=== PATIENT | female | born 1960 | race Caucasian/White ===

== ENCOUNTER 2017-06-03 05:39 | Emergency (ER) | payer BC, OTHER ==
[2017-06-03] MEDS ORDERED: CLINDAMYCIN HCL 150 MG CAPSULE PO ONE (06:31)
--- NOTE | 2017-06-03 06:37 | ER Document Report ---
ED General - General Chief Complaint: Nose Pain Stated Complaint: NOSE PAIN Time Seen by Provider: 06/03/17 06:22 Mode of Arrival: Ambulatory Information source: Patient Notes: HPI-57 years old female presents today with pain and swelling over the right nostril, she had similar infection in the past, this plan was going on for the last 3-4 days. Now the upper lip as slight swelling. No fever chills. No discharges. No other constitutional symptoms. She has multiple allergies REVIEW OF SYSTEMS: CONSTITUTIONAL : Denies fever, chills, or sweats. Denies recent illness. EENT: Denies eye, ear, throat, or mouth pain or symptoms. Denies nasal or sinus congestion or discharge. Denies throat, tongue, or mouth swelling or difficulty swallowing. CARDIOVASCULAR: Denies chest pain. Denies palpitations or racing or irregular heart beat. Denies ankle edema. RESPIRATORY: Denies cough, cold, or chest congestion. Denies shortness of breath, difficulty breathing, or wheezing. GASTROINTESTINAL: Denies abdominal pain or distention. Denies nausea, vomiting , or diarrhea. Denies blood in vomitus, stools, or per rectum. Denies black, tarry stools. Denies constipation. GENITOURINARY: Denies difficulty urinating, painful urination, burning, frequency, blood in urine, or discharge. FEMALE GENITOURINARY: Denies vaginal bleeding, heavy or abnormal periods, irregular periods. Denies vaginal discharge or odor. MUSCULOSKELETAL: Denies back or neck pain or stiffness. Denies joint pain or swelling. SKIN: Denies rash, lesions or sores. HEMATOLOGIC : Denies easy bruising or bleeding. LYMPHATIC: Denies swollen, enlarged glands. NEUROLOGICAL: Denies confusion or altered mental status. Denies passing out or loss of consciousness. Denies dizziness or lightheadedness. Denies headache. Denies weakness or paralysis or loss of use of either side. Denies problems with gait or speech. Denies sensory loss, numbness, or tingling. Denies seizures. PSYCHIATRIC: Denies anxiety or stress. Denies depression, suicidal ideation, or homicidal ideation. ALL OTHER SYSTEMS REVIEWED AND NEGATIVE. PHYSICAL EXAMINATION: GENERAL: Well-appearing, well-nourished and in no acute distress. HEAD: Atraumatic, normocephalic. EYES: Pupils equal round and reactive to light, extraocular movements intact, conjunctiva are normal. ENT: On the orifice days lesion which is about 3 mm x 4 mm with irregular surface. right nostril- Infected with erythema is warm and tender to touch. The erythema extending to the right half of the upper lip. With swelling of the lips to - oropharynx clear without exudates. Moist mucous membranes. NECK: Normal range of motion, supple without lymphadenopathy LUNGS: Breath sounds clear to auscultation bilaterally and equal. No wheezes rales or rhonchi. HEART: Regular rate and rhythm without murmurs ABDOMEN: Soft, nontender, nondistended abdomen. No guarding, no rebound. No masses appreciated. Female : deferred Musculoskeletal: Normal range of motion, no pitting or edema. No cyanosis. NEUROLOGICAL: Cranial nerves grossly intact. Normal speech, normal gait. Normal sensory, motor exams PSYCH: Normal mood, normal affect. SKIN: Warm, Dry, normal turgor, no rashes or lesions noted. Dictation was performed using [employer] voice recognition software TRAVEL OUTSIDE OF THE [place] IN LAST 30 DAYS: No - HPI Onset: Last week Onset/Duration: Gradual Quality of pain: Sharp Pain Level: 3 Associated symptoms: Allergy/hay fever - Related Data Allergies/Adverse Reactions: Penicillins Allergy (Severe, Verified 07/17/13 23:31) throat closes nitrofurantoin [Nitrofurantoin] Allergy (Intermediate, Verified 07/17/13 23:31) Hives Sulfa (Sulfonamide Antibiotics) Allergy (Intermediate, Verified 07/17/13 23:31) Hives doxycycline [Doxycycline] Allergy (Verified 07/17/13 19:49) levofloxacin [From Levaquin] Allergy (Verified 07/18/13 01:59) Past Medical History - General Information source: Patient - Social History Smoking Status: Never Smoker Cigarette use (# per day): No Chew tobacco use (# tins/day): No Smoking Education Provided: No Frequency of alcohol use: Rare Drug Abuse: None Family History: Reviewed & Not Pertinent - Past Medical History Cardiac Medical History: Reports: Hx Hypertension Pulmonary Medical History: Denies: Hx Tuberculosis Endocrine Medical History: Reports: Hx Diabetes Mellitus Type 2 Psychiatric Medical History: Denies: Hx Depression Past Surgical History: Reports: Hx Section, Hx Cholecystectomy, Hx Hysterectomy Review of Systems - Review of Systems Notes: As per history of complain Physical Exam - Vital signs Vitals: Temp Pulse Resp BP Pulse Ox 98.5 F 94 16 121/81 98 06/03/17 05:44 06/03/17 05:44 06/03/17 05:44 06/03/17 05:44 06/03/17 05:44 Course - Re-evaluation Re-evalutation: 06/03/17 06:35 Patient was explained this lesion need to be evaluated by a adoption coordinator. Possibly need biopsy. - Vital Signs Vital signs: Temp Pulse Resp BP Pulse Ox 98.5 F 94 16 121/81 98 06/03/17 05:44 06/03/17 05:44 06/03/17 05:44 06/03/17 05:44 06/03/17 05:44 Discharge - Discharge Clinical Impression: Cellulitis of nose, Lesion of nostril Condition: Fair Disposition: HOME, SELF-CARE Instructions: MRSA Cellulitis ([facility]) Additional Instructions: Please follow-up with your primary care physician or adoption coordinator for possible biopsy. Prescriptions: Clindamycin HCl 300 mg PO TID #30 capsule Referrals: SISSY JENSEN NP [Primary Care Provider] - Follow up as needed
[2017-06-03 06:50] VITALS: BP 136/78
== END 2017-06-03 06:54 | disposition home or self-care (01) ==
LOC: ER 05:39
DX: J34.0 Abscess, furuncle and carbuncle of nose (principal); L98.9 Disorder of the skin and subcutaneous tissue, unspecified; R22.0 Localized swelling, mass and lump, head; I10 Essential (primary) hypertension; E11.9 Type 2 diabetes mellitus without complications
CPT/HCPCS: 87070; 99283

== ENCOUNTER 2019-03-30 04:04 | Emergency (ER) | payer OTHER ==
[2019-03-30] MEDS ORDERED: NORMAL SALINE 1000 ML 1,000 ML IV ONE (04:36)
[2019-03-30] MEDS ORDERED: MORPHINE SULFATE 10 MG/ML INJ IV ONE (04:36)
[2019-03-30] MEDS ORDERED: ONDANSETRON HCL INJ/PF 4 MG/2 ML SDV IV ONE (04:36)
--- NOTE | 2019-03-30 04:38 | ER Document Report ---
ED Medical Screen (RME) - General Chief Complaint: Shoulder Injury Stated Complaint: SYNCOPE Time Seen by Provider: 03/30/19 04:27 Primary Care Provider: SISSY JENSEN NP [Primary Care Provider] - Follow up as needed Notes: 59-year-old female comes by EMS for chief complaint of a syncopal episode. She states she was performing a bowel prep for a colonoscopy in the morning, she states that she cannot remember what happened but she must of passed out and hit the floor. She reports pain along her right shoulder, neck, and she thinks she hit her head. Family states they heard her fall and states that she was briefly unresponsive. Afterwards she was complaining of severe pain in her right shoulder area. Patient received 150 mcg of fentanyl with some improvement. She denies chest pain, she denies any other injuries. She is not on a blood thinner. Past medical history hypertension, hypothyroidism, neck surgery. TRAVEL OUTSIDE OF THE [place] IN LAST 30 DAYS: No - Related Data Allergies/Adverse Reactions: Penicillins Allergy (Severe, Verified 07/17/13 23:31) throat closes nitrofurantoin [Nitrofurantoin] Allergy (Intermediate, Verified 07/17/13 23:31) Hives Sulfa (Sulfonamide Antibiotics) Allergy (Intermediate, Verified 07/17/13 23:31) Hives doxycycline [Doxycycline] Allergy (Verified 07/17/13 19:49) levofloxacin [From Levaquin] Allergy (Verified 07/18/13 01:59) Past Medical History - Past Medical History Cardiac Medical History: Reports: Hx Hypertension Pulmonary Medical History: Denies: Hx Tuberculosis Endocrine Medical History: Reports: Hx Diabetes Mellitus Type 2 Renal/ Medical History: Denies: Hx Peritoneal Dialysis Psychiatric Medical History: Denies: Hx Depression Past Surgical History: Reports: Hx Section, Hx Cholecystectomy, Hx Hysterectomy Physical Exam - Vital signs Vitals: Resp 20 03/30/19 04:06 - Respiratory Chest status: Tender - Very tender over the left humerus area and surrounding shoulder area, nontender chest otherwise with no other signs of trauma Course - Re-evaluation Re-evalutation: My physical I have greeted and performed a rapid initial assessment of this patient. A comprehensive ED assessment and evaluation of the patient, analysis of test results and completion of the medical decision making process will be conducted by additional ED providers. - Vital Signs Vital signs: Temp Pulse Resp BP Pulse Ox 16 109/81 03/30/19 04:09 03/30/19 04:09 Doctor's Discharge - Discharge Referrals: SISSY JENSEN NP [Primary Care Provider] - Follow up as needed
--- NOTE | 2019-03-30 04:39 | RADIOLOGY REPORT (SQ) ---
EXAM DESCRIPTION: XR SHOULDER 2 OR MORE VIEWS COMPLETED DATE/TME: 03/30/2019 04:11 CLINICAL HISTORY: 59 years, Female, possible deformity COMPARISON: None. NUMBER OF VIEWS: 2 TECHNIQUE: LIMITATIONS: None. FINDINGS: Acute impacted comminuted fracture of the surgical neck. Impaction of the humeral head. Avulsion of the greater tuberosity. Articular surface of the humerus appears to be rotated but intact IMPRESSION: Impacted fracture of the surgical neck, as described copyright 2010 [employer]- All Rights Reserved
[2019-03-30 05:13] LABS: ABSOLUTE EOSINOPHILS # (AUTO) 0.1 10^3/uL (0.0-0.6); ABSOLUTE LYMPHOCYTES (AUTO) 2.2 10^3/uL (0.5-4.7); ABSOLUTE MONOCYTES (AUTO) 0.5 10^3/uL (0.1-1.4); ABSOLUTE NEUT (AUTO) 8.2 10^3/uL (1.7-8.2); BASOPHILS % (AUTO) 0.4 % (0-2); EOSINOPHILS % (AUTO) 0.5 % (0-6); HEMOGLOBIN 13.5 g/dL (12.0-15.5); LYMPHOCYTES % (AUTO) 19.8 % (13-45); MEAN CORPUSCULAR HEMOGLOBIN 30.3 pg (27.0-33.4); MEAN CORPUSCULAR HGB CONC 33.7 g/dL (32.0-36.0); MEAN CORPUSCULAR VOLUME 90 fl (80-97); MONOCYTES % (AUTO) 4.4 % (3-13); PLATELET COUNT 332 10^3/uL (150-450); RED BLOOD COUNT 4.45 10^6/uL (3.72-5.28); RED CELL DISTRIBUTION WIDTH 15.3 % (11.5-14.0); SEGMENTED NEUTROPHILS % (AUTO) 74.9 % (42-78); TOTAL CELLS COUNTED % (AUTO) 100 %
[2019-03-30 05:37] LABS: ALBUMIN 4.4 g/dL (3.5-5.0); ALKALINE PHOSPHATASE 63 U/L (38-126); ANION GAP 8 (5-19); ASPARTATE AMINO TRANSFERASE 68 U/L (14-36); BILIRUBIN,DIRECT 0.4 mg/dL (0.0-0.4); BILIRUBIN,TOTAL 0.5 mg/dL (0.2-1.3); BLOOD UREA NITROGEN 13 mg/dL (7-20); CALCIUM 9.6 mg/dL (8.4-10.2); CARBON DIOXIDE 29 mmol/L (22-30); CHLORIDE 103 mmol/L (98-107); GLUCOSE 147 mg/dL (75-110); POTASSIUM 5.1 mmol/L (3.6-5.0); TOTAL PROTEIN 7.9 g/dL (6.3-8.2)
--- NOTE | 2019-03-30 05:49 | RADIOLOGY REPORT (SQ) ---
EXAM DESCRIPTION: XR CHEST 1 VIEW COMPLETED DATE/TME: 03/30/2019 04:34 CLINICAL HISTORY: 59 years, Female, syncopal episode COMPARISON: 07/18/2013 NUMBER OF VIEWS: One TECHNIQUE: AP view of the chest LIMITATIONS: None. FINDINGS: Lungs are clear. The heart is normal in size. There is no pneumothorax or pleural effusion. There are changes of anterior cervical fusion. Cholecystectomy clips are noted. There is gaseous distention of the stomach and colon. IMPRESSION: No acute cardiopulmonary abnormality copyright 2011 [employer]- All Rights Reserved
[2019-03-30] MEDS ORDERED: HYDROMORPHONE HCL INJ/PF 2 MG/ML AMPULE IV ONE (05:56)
[2019-03-30] MEDS ORDERED: FENTANYL CITRATE INJ/PF 100 MCG/2 ML AMPUL IV ONE ×2 (05:57→06:58)
--- NOTE | 2019-03-30 07:07 | ER Document Report ---
ED General - General Chief Complaint: Shoulder Injury Stated Complaint: SYNCOPE Time Seen by Provider: 03/30/19 04:27 Primary Care Provider: SISSY JENSEN NP [Primary Care Provider] - Follow up as needed TRAVEL OUTSIDE OF THE [place] IN LAST 30 DAYS: No - HPI Notes: 59-year-old female with a chief complaint of syncope with associated fall and injury to left upper arm. 59-year-old female with a history of hypertension and depression and prior history of episodic vasovagal syncope. Within the last 12 hours patient is taken oral prep for colonoscopy. She hurriedly got up from bed to go to the toilet around 4 AM when she became lightheaded and momentarily lost consciousnes s falling and striking her left upper arm against furniture in the bedroom. She denies other injuries. Episode was witnessed by her mother who says she lost consciousness only momentarily. - Related Data Allergies/Adverse Reactions: Penicillins Allergy (Severe, Verified 03/30/19 05:58) throat closes nitrofurantoin [Nitrofurantoin] Allergy (Intermediate, Verified 03/30/19 05:58) Hives Sulfa (Sulfonamide Antibiotics) Allergy (Intermediate, Verified 03/30/19 05:58) Hives doxycycline [Doxycycline] Allergy (Verified 03/30/19 05:58) levofloxacin [From Levaquin] Allergy (Verified 03/30/19 05:58) Past Medical History - General Information source: Patient, Relative - Social History Smoking Status: Never Smoker Frequency of alcohol use: None Drug Abuse: None Lives with: Family Family History: Reviewed & Not Pertinent Patient has suicidal ideation: No Patient has homicidal ideation: No - Past Medical History Cardiac Medical History: Reports: Hx Hypertension Pulmonary Medical History: Denies: Hx Tuberculosis Neurological Medical History: Reports: Other - Vasovagal syncope Endocrine Medical History: Reports: Hx Diabetes Mellitus Type 2 Renal/ Medical History: Denies: Hx Peritoneal Dialysis Psychiatric Medical History: Reports: Hx Depression Past Surgical History: Reports: Hx Section, Hx Cholecystectomy, Hx Hysterectomy Review of Systems - Review of Systems Notes: Constitutional: Negative for fever. HENT: Negative for sore throat. Eyes: Negative for visual changes. Cardiovascular: Negative for chest pain. Respiratory: Negative for shortness of breath. Gastrointestinal: Negative for abdominal pain, vomiting or diarrhea. Genitourinary: Negative for dysuria. Musculoskeletal: Pain left upper arm. Skin: Negative for rash. Neurological: Negative for headaches, weakness or numbness. 10 point ROS negative except as marked above and in HPI. Physical Exam - Vital signs Vitals: Resp 20 03/30/19 04:06 - Notes Notes: GENERAL: Female patient approximately stated age who appears moderately uncomfortable with left upper extremity immobilized with a sling. SKIN: Good turgor no rashes. HEAD: Normocephalic atraumatic. EYES: PERRLA. EOMI. Conjunctivae and sclerae clear. EARS: CANALS AND TMS CLEAR. NOSE: CLEAR. MOUTH: Moist mucosa. Good dentition. No stridor or edema. No drooling. NECK: Supple. No masses or thyromegaly. No adenopathy. Carotids 2+ without bruits. No JVD. BACK: Symmetrical without tenderness. CHEST: Respirations unlabored. Breath sounds clear and symmetrical. HEART: Mildly tachycardic regular rhythm. No murmur gallop or rub. ABDOMEN: Soft nontender without masses, organomegaly or rebound. Bowel sounds normally active. No bruits. GENITALIA: Deferred. EXTREMITIES: Tenderness minimal swelling of left proximal humerus area. Distal neurovascular exam is normal. No tenderness over hip area. No calf tenderness. Cap refill less than 1.5 seconds. Dorsalis pedis and posterior tibial pulses 3+ and symmetrical. NEUROLOGICAL: GCS 15. Alert and oriented x3. Fluent speech. Cranial nerves II through XII intact. Sensorimotor and cerebellar normal. Normal tone. PSYCHIATRIC: Appropriate affect. Course - Re-evaluation Re-evalutation: 03/30/19 10:03 Patient appears volume depleted from the prep she is taken for colonoscopy. I think she had vasovagal syncope associated with this. She has been given 2 L of IV normal saline here and is symptomatically improved and hemodynamically stable. Her left upper extremity fracture has been splinted. Orthopedics referral will be provided. She is to increase p.o. fluids. - Vital Signs Vital signs: Temp Pulse Resp BP Pulse Ox 98.5 F 23 H 148/96 H 97 03/30/19 07:09 03/30/19 09:01 03/30/19 09:00 03/30/19 09:01 - Laboratory Result Diagrams: 03/30/19 04:55 03/30/19 04:55 Laboratory results interpreted by me: 03/30/19 03/30/19 03/30/19 04:55 04:55 09:00 WBC 11.0 H RDW 15.3 H Potassium 5.1 H Glucose 147 H AST 68 H Ur Leukocyte Esterase TRACE H Urine Ascorbic Acid 40 H - Diagnostic Test Radiology reviewed: Reports reviewed Radiology results interpreted by me: 03/30/19 07:08 Radiologist identifies impacted fracture left proximal humerus. - EKG Interpretation by Me Additional EKG results interpreted by me: 03/30/19 07:08 Twelve-lead EKG reviewed by me contemporaneously at 0653 hrs. demonstrating low voltage in frontal leads. Sinus tachycardia with rate 106. Normal intervals. Normal ST segments/T waves. Minimal interval interval change compared with prior study 05/29/2014 Procedures - Immobilization Left Upper Arm Immobilizer type: Long arm posterior, Sling Performed by: PCT Post-Proc Neuro Vasc Exam: Normal Alignment checked and good: Yes Discharge - Discharge Clinical Impression: Dehydration Closed fracture of left proximal humerus Qualifiers: Encounter type: initial encounter Fracture morphology: other fracture Fracture alignment: nondisplaced Qualified Code(s): S42.295A - Other nondisplaced fracture of upper end of left humerus, initial encounter for closed fracture Fall Qualifiers: Encounter type: initial encounter Qualified Code(s): W19.XXXA - Unspecified fall, initial encounter Syncope Qualifiers: Syncope type: vasovagal syncope Qualified Code(s): R55 - Syncope and collapse Condition: Stable Disposition: HOME, SELF-CARE Instructions: Oral Narcotic Medication ([facility]) Additional Instructions: See your orthopedist in [place] next 2 to 3 days for follow-up. Prescriptions: Oxycodone HCl/Acetaminophen [Percocet 5-325 mg Tablet] 1 - 2 tab PO Q4H PRN #25 tablet PRN Reason: Referrals: SISSY JENSEN NP [Primary Care Provider] - Follow up as needed
--- NOTE | 2019-03-30 07:10 | RADIOLOGY REPORT (SQ) ---
EXAM DESCRIPTION: CT HEAD WITHOUT IV CONTRAST COMPLETED DATE/TME: 03/30/2019 04:34 CLINICAL HISTORY: 59 years Female, syncopal episode COMPARISON: None. TECHNIQUE: No contrast. Coronal and sagittal reformat. This exam was performed according to our departmental dose-optimization program, which includes automated exposure control, adjustment of the mA and/or kV according to patient size and/or use of iterative reconstruction technique. FINDINGS: No hemorrhage or infarct. No mass, mass effect, or midline shift. Brain and extra-axial structures appear intact. IMPRESSION: Normal CT of the head.
--- NOTE | 2019-03-30 07:15 | RADIOLOGY REPORT (SQ) ---
EXAM DESCRIPTION: CT CERVICAL SPINE WITHOUT IV CONTRAST COMPLETED DATE/TME: 03/30/2019 04:34 CLINICAL HISTORY: 59 years Female, syncopal episode Comparison: None. Technique: No contrast. Coronal and sagittal reformat. This exam was performed according to our departmental dose-optimization program, which includes automated exposure control, adjustment of the mA and/or kV according to patient size and/or use of iterative reconstruction technique.[facility]: Dose Right [facility]: CareDose [facility]: Dose Right [facility]: Teradose 4D [facility]: BoxC LIMITATIONS: None Findings: C3-C7 anterior cervical hardware fusion with vertebral fusion hardware. No evidence of metal fracture or loosening. Advanced degenerative inferior C2 endplate. Moderate thecal sac compression at the C7 level due to a moderate residual posterior C7 superior endplate osteophyte. Normal alignment. Normal curvature. No fracture. Normal vertebral heights. No significant bony spinal or foraminal canal compromise. Partially imaged nuchal soft tissues, inferior cranium, and upper thorax appear otherwise grossly intact. IMPRESSION: No acute findings.
[2019-03-30] MEDS: NORMAL SALINE 1000 ML 1,000 ML IV PRN ×2 (07:23→08:20)
--- NOTE | 2019-03-30 07:38 | EKG REPORT ---
SEVERITY:- OTHERWISE NORMAL ECG - SINUS TACHYCARDIA LOW VOLTAGE IN FRONTAL LEADS : Confirmed by: Jimmie Ramsey MD 30-Mar-2019 07:37:51
[2019-03-30 09:22] LABS: APPEARANCE,URINE CLEAR; BILIRUBIN,URINE NEGATIVE (NEGATIVE); COLOR,URINE YELLOW; GLUCOSE, URINE NEGATIVE (NEGATIVE); KETONES,URINE NEGATIVE (NEGATIVE); LEUKOCYTE ESTERASE,URINE TRACE (NEGATIVE); NITRITE,URINE NEGATIVE (NEGATIVE); PROTEIN,URINE NEGATIVE (NEGATIVE); URINE SPECIFIC GRAVITY 1.016; UROBILINOGEN,URINE NEGATIVE mg/dL (<2.0)
[2019-03-30 10:33] VITALS: BP 147/100
== END 2019-03-30 10:34 | disposition home or self-care (01) ==
LOC: ER 04:04
DX: S42.295A Other nondisplaced fracture of upper end of left humerus, initial encounter for closed fracture (principal); E86.0 Dehydration; R55 Syncope and collapse; W01.190A Fall on same level from slipping, tripping and stumbling with subsequent striking against furniture, initial encounter; I10 Essential (primary) hypertension; E11.9 Type 2 diabetes mellitus without complications; Z88.0 Allergy status to penicillin; Z88.2 Allergy status to sulfonamides; Z90.49 Acquired absence of other specified parts of digestive tract; Z90.710 Acquired absence of both cervix and uterus
CPT/HCPCS: 93005; 96376; 99285; 96361; 96374; 96375; 36415; 85025; 80053; 81001; 84484; 71045; 73030; 70450; 72125; 93010; 29105; J3010; J2270; J2405; J7030